=== PATIENT | female | born 2000 | race Caucasian/White ===

== ENCOUNTER 2020-02-07 18:26 | Emergency (ER) | payer BC ==
[~2020-02-07] VITALS: Ht 7.6 cm; Wt 61.4 kg
[2020-02-07 19:17] LABS: COLLECTION METHOD CLEAN CATCH
[2020-02-07 19:29] LABS: MUCOUS Present /lpf; PH 6 (5-8); SQUAMOUS EPITHELIAL 0-2 /hpf; URINE APPEARANCE Clear; URINE BACTERIA Rare /hpf; URINE BILIRUBIN Negative (NEGATIVE); URINE BLOOD 3+ (NEGATIVE); URINE COLOR Amber; URINE GLUCOSE Negative (NEGATIVE); URINE KETONE Negative (NEGATIVE); URINE LEUKOCYTE ESTERASE 2+ (NEGATIVE); URINE NITRATE Positive (NEGATIVE); URINE PROTEIN(semi-quant) Negative (NEGATIVE); URINE RBC >50 /hpf; URINE UROBILINOGEN >=4.0 mg/dL (NEGATIVE)
[2020-02-07] MEDS ORDERED: ZOFRAN 4MG T4 MG/TAB PO (20:18)
[2020-02-07] MEDS ORDERED: CEPHALEXIN500 M1 PO (20:18)
[2020-02-07 20:29] VITALS: BP 116/68; PULSE 92; TEMP 98.2
== END 2020-02-07 20:29 | disposition home or self-care (01) ==
LOC: COL.ER 18:26
PROVIDERS: Emergency Medicine
DX: N39.0 Urinary tract infection, site not specified (principal); N12 Tubulo-interstitial nephritis, not specified as acute or chronic